=== PATIENT | female | born 1985 | race African-American/Black ===

== ENCOUNTER 2024-10-11 22:15 | Inpatient (IN) | payer MEDICAID ==
[~2024-10-11] VITALS: Ht 165.1 cm; Wt 86.9 kg
[2024-10-11 23:20] LABS: Hematocrit 24.3 % (36.0-46.0); Mean Corpuscular Hemoglobin 16.3 pg (28.0-32.0); Mean Corpuscular Volume 57.9 fL (80.0-100.0)
--- NOTE | 2024-10-11 23:22 | ED.PDOC ---
History of Present Illness HPI Comments 38 y/o F presents with 1x week history of fatigue and generalized bodyaches and weakness. Atraumatic and unprovoked onset. Patient comments on feeling tired than her usual self. No endorsed recent ailments, sick contacts, injuries, or significant medical history. Patient denies having any chest pain, shortness of breath, urinary symptoms, fever, chills, or further associated symptoms. 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 History Social History Smoker: Non-Smoker Alcohol: Denies ETOH Use Drugs: Denies Drug Use Lives In: Home All Other Systems: Reviewed and Negative (Comprehensive systems review obtained and negative except for what is stated in the HPI.) Physical Exam General Appearance: Mild Distress, Obese HEENT: Normal ENT Inspection, Pharynx Normal, TMs Normal Neck: Full Range of Motion, Non-Tender, Normal, Normal Inspection Respiratory: Chest Non-Tender, Lungs Clear, No Accessory Muscle Use, No Res piratory Distress, Normal Breath Sounds Cardiovascular: No Edema, No JVD, No Murmur, No Gallop, Normal Peripheral Pulses, Regular Rate/Rhythm Breast Exam: Deferred Gastrointestinal: No Organomegaly, Non Tender, No Pulsatile Mass, Normal Bowel Sounds, Soft Genitalia: Deferred Pelvic: Deferred Rectal: Deferred Extremities: No calf tenderness, Normal capillary refill, Normal inspection, Normal range of motion, Non-tender, No pedal edema Musculoskeletal : Apperance: Normal Neurologic: Alert, novelty maker II-XII nml as Tested, No Motor Deficits, Normal Affect, Normal Mood, No Sensory Deficits Cerebellar Function: Normal Reflexes: Normal Skin: Dry, Normal Color, Warm Lymphatic: No Adenopathy Was a procedure done? Was a procedure done?: No Differential Dx Considerations may include: viral syndrome, electrolyte imbalance, dehydration, anemia, hypothyroidism, among others X-Ray, Labs, Meds, VS Vital Signs Date Time Temp Pulse Resp B/P (MAP) Pulse Ox O2 Delivery O2 Flow Rate FiO2 10/11/24 22:25 99.0 85 16 115/77 98 99.0 Lab Test 10/11/24 22:59 Range/Units White Blood Count 3.8 L 4.4-10.8 10^3/uL Red Blood Count 4.20 4.0-5.20 10^6/uL Hemoglobin 6.9 *L 12.2-16.2 g/dL Hematocrit 24.3 L 36.0-46.0 % Mean Corpuscular Volume 57.9 L 80.0-100.0 fL Mean Corpuscular Hemoglobin 16.3 L 28.0-32.0 pg Mean Corpuscular Hemoglobin Concent 28.2 L 32.0-36.0 g/dL Red Cell Distribution Width 20.2 H 11.8-14.3 % Platelet Count 337 140-450 10^3/uL Mean Platelet Volume 8.6 6.9-10.8 fL Neutrophils (%) (Auto) 37.0-80.0 % Lymphocytes (%) (Auto) 10.0-50.0 % Monocytes (%) (Auto) 0.0-12.0 % Basophils (%) (Auto) 0.0-2.0 % Neutrophils # (Auto) 1.6-8.6 10 ^3/uL Lymphocytes # (Auto) 0.4-5.4 10 ^3/uL Monocytes # (Auto) 0-1.3 10 ^3/uL Differential Total Cells Counted 100.0 100 Neutrophils % (Manual) 29 L 37.0-80.0 Band Neutrophils % (Manual) 1 Lymphocytes % (Manual) 62 H 10.0-50.0 Monocytes % (Manual) 3 0-12 Eosinophils % (Manual) 5 0-7 Basophils % (Manual) 0 0.0-2.0 Metamyelocytes % (manual) 0 Myelocytes % (Manual) 0 Promyelocytes % (Manual) 0 Blast Cells % (Manual) 0 Reactive Lymphocytes 0 Platelet Estimate Adequate Large Platelets Few Hypochromasia (manual) Marked Anisocytosis (manual) Slight Microcytosis Marked Ovalocytes Few Sodium Level 142 136-145 mmol/L Potassium Level 3.6 3.5-5.1 mmol/L Chloride Level 110 H 98-107 mmol/L Carbon Dioxide Level 24 20-31 mmol/L Anion Gap 8 5-15 Blood Urea Nitrogen 9 9-23 mg/dL Creatinine 0.75 0.550-1.02 mg/dL Glomerular Filtration Rate Calc 104 >90 mL/min BUN/Creatinine Ratio 12.0 10.0-20.0 Serum Glucose 95 74-106 mg/dL Calcium Level 9.0 8.7-10.4 mg/dL Magnesium Level 1.8 1.6-2.6 mg/dL Total Bilirubin 0.6 0.2-1.0 mg/dL Aspartate Amino Transferase (AST) 15 13-40 U/L Alanine Aminotransferase (ALT) 11 7-40 U/L Alkaline Phosphatase 41 L 46-116 U/L Total Protein 6.7 5.7-8.2 g/dL Albumin 4.4 3.2-4.8 g/dL Thyroid Stimulating Hormone (TSH) 0.72 0.55-4.78 uIU/mL Free Thyroxine (T4) Calculated 1.09 0.89-1.76 ng/dL Time of 1ST Reevaluation: 23:10 Reevaluation 1ST: Unchanged Patient Education/Counseling: Diagnosis, Treatment, Need For Follow Up Family Education/Counseling: No Family Present SEPSIS Sepsis Screen Date sepsis recognized/suspect: Oct 11, 2024 Time Sepsis recognized/suspect: 2024 Recent Procedure: No On Antibiotic Therapy: No Respiratory Rate >20: No Heart Rate >90: No Temp<36 C (96.8 F) or >38.3 C: No SBP <90 or MAP <65 mmHG: No New Acute Mental Status Change: No Is the patient on CPAP, BIPAP,: No Physician Orders Urinalysis (10/11/24 22:48) Vital Signs Date Time Temp Pulse Resp B/P (MAP) Pulse Ox O2 Delivery O2 Flow Rate FiO2 10/11/24 22:25 99.0 85 16 115/77 98 99.0 Laboratory Tests Test 10/11/24 22:59 White Blood Count 3.8 10^3/uL (4.4-10.8) L Departure 1 Departure Time of Disposition: 00:58 Impression: Primary Impression: Iron deficiency anemia Additional Impression: Symptomatic anemia Disposition: ADMITTED INPATIENT Admit to: Med Surg Condition: Guarded Discharged With: Self Comments I reviewed the lab results. Patient is severely anemic with a H&H of 7 and 27. It is a microcytic anemia with MCV low at 58. White blood cell count is mildly low at 3.8. I suspect acute iron deficiency anemia. Patient will need admission for further workup and possible blood transfusion and for blood count gets any lower. Critical Care Note Critical Care Time?: No Stability Stability form required: No Heart Score Heart Score: Heart Score Response (Comments) Value History N/A 0 EKG N/A 0 Age N/A 0 Risk Factors N/A 0 Troponin N/A 0 Total 0 I personally scribed for JENIFER AGUILAR MD ([email or web address]) on 10/11/24 at 23:22. Electronically submitted by Nolberto Garrett ([email or web address]). JENIFER AGUILAR MD Oct 11, 2024 23:22
[2024-10-11 23:27] LABS: Alanine Aminotransferase 11 U/L (7-40); Albumin 4.4 g/dL (3.2-4.8); Anion Gap 8 (5-15); BUN/Creatinine Ratio 12.0 (10.0-20.0); Bilirubin, Total 0.6 mg/dL (0.2-1.0); Blood Urea Nitrogen 9 mg/dL (9-23); Calcium 9.0 mg/dL (8.7-10.4); Carbon Dioxide 24 mmol/L (20-31); Glucose 95 mg/dL (74-106); Hemoglobin 6.9 g/dL (12.2-16.2); Magnesium 1.8 mg/dL (1.6-2.6); Potassium 3.6 mmol/L (3.5-5.1); Sodium 142 mmol/L (136-145); Total Protein 6.7 g/dL (5.7-8.2)
[2024-10-11 23:29] LABS: Alkaline Phosphatase 41 U/L (46-116); Chloride 110 mmol/L (98-107)
[2024-10-12] VITALS (8 sets, daily range): BP systolic 95–124; BP diastolic 46–80; PULSE 59–76; RESP 13–20; TEMP 97.9–99; O2SAT 96–100
[2024-10-12 00:02] LABS: Total Cells Counted 100.0 (100)
[2024-10-12 00:04] LABS: Anisocytosis Slight; Ovalocytes FEW
[2024-10-12 04:23] LABS: Urine Protein, UAD Negative (Negative)
--- NOTE | 2024-10-12 04:29 | DVHHP2 ---
History of Present Illness Reason for Visit: Generalized weakness History of Present Illness 38-year-old female presents for evaluation of generalized weakness. Patient reports a one-week history of generalized weakness with fatigue and body aches. Patient reports history of anemia yet she is noncompliant with her iron supple ments. She reports not being transfused in the past. Denies chest pain or shortness for breath. No other acute complaints. Past Medical History Anemia Past Surgical History Denies Family History Noncontributory Smoke: No ALCOHOL: none Drugs: None Lives: with Family Review of Systems Review of Systems Review of systems are currently negative otherwise addressed in HPI. Allergies: Coded Allergies: NO KNOWN ALLERGIES (Unverified , 10/11/24) Medications Current Medications Medications Dose Ordered Sig/Mis Route Start Time Stop Time Status Last Admin Dose Admin Ondansetron HCl 4 mg Q4HP PRN IV 10/12/24 04:30 UNV Acetaminophen 650 mg Q6HP PRN PO 10/12/24 04:30 UNV Exam Vital Signs Vital Signs Date Time Temp Pulse Resp B/P (MAP) Pulse Ox O2 Delivery O2 Flow Rate FiO2 10/12/24 03:45 67 13 96 Room Air* 0 21 10/12/24 03:35 98.7 126/70 (88) 98.7 Exam Gen: 38-year-old female in mild distress Skin: Warm, dry, normal color and texture, no rash. HEENT: Normocephalic atraumatic, mucous membranes moist and pink. Neck: Cervical and supraclavicular nodes normal without enlargement, trachea is midline, thyroid gland is normal without masses. Pulmonary: Clear to auscultation and percussion bilaterally. Cardiac: Regular rate and rhythm. No murmur Abdomen: Soft, nontender, nondistended, bowel sounds present all 4 quadrants, no guarding, no rigidity, no organomegaly. Extremities: No cyanosis, clubbing, no edema Neuro: Cranial nerves II through XII grossly intact, normal affect and speech, no focal motor deficits. Labs/Xrays Labs Test 10/12/24 03:30 10/11/24 22:59 Range/Units Urine Color Light-yellow Yellow Urine Clarity Clear Clear Urine pH 6.0 5.0-9.0 Urine Specific [place] 1.028 1.001-1.035 Urine Protein Negative Negative Urine Ketones Negative Negative Urine Blood Negative Negative /uL Urine Nitrite Negative Negative Urine Bilirubin Negative Negative Urine Urobilinogen Normal Negative mg/dL Urine Leukocyte Esterase Negative Negative /uL Urine RBC None seen 0 - 4 /hpf Urine Microscopic WBC 4 0-5 /HPF Urine Squamous Epithelial Cells Few <5 /hpf Urine Bacteria None seen None Seen /hpf Urine Mucus Few None Seen Urine Glucose Normal Normal mg/dL White Blood Count 3.8 L 4.4-10.8 10^3/uL Red Blood Count 4.20 4.0-5.20 10^6/uL Hemoglobin 6.9 *L 12.2-16.2 g/dL Hematocrit 24.3 L 36.0-46.0 % Mean Corpuscular Volume 57.9 L 80.0-100.0 fL Mean Corpuscular Hemoglobin 16.3 L 28.0-32.0 pg Mean Corpuscular Hemoglobin Concent 28.2 L 32.0-36.0 g/dL Red Cell Distribution Width 20.2 H 11.8-14.3 % Platelet Count 337 140-450 10^3/uL Mean Platelet Volume 8.6 6.9-10.8 fL Neutrophils (%) (Auto) 37.0-80.0 % Lymphocytes (%) (Auto) 10.0-50.0 % Monocytes (%) (Auto) 0.0-12.0 % Basophils (%) (Auto) 0.0-2.0 % Neutrophils # (Auto) 1.6-8.6 10 ^3/uL Lymphocytes # (Auto) 0.4-5.4 10 ^3/uL Monocytes # (Auto) 0-1.3 10 ^3/uL Differential Total Cells Counted 100.0 100 Neutrophils % (Manual) 29 L 37.0-80.0 Band Neutrophils % (Manual) 1 Lymphocytes % (Manual) 62 H 10.0-50.0 Monocytes % (Manual) 3 0-12 Eosinophils % (Manual) 5 0-7 Basophils % (Manual) 0 0.0-2.0 Metamyelocytes % (manual) 0 Myelocytes % (Manual) 0 Promyelocytes % (Manual) 0 Blast Cells % (Manual) 0 Reactive Lymphocytes 0 Platelet Estimate Adequate Large Platelets Few Hypochromasia (manual) Marked Anisocytosis (manual) Slight Microcytosis Marked Ovalocytes Few Sodium Level 142 136-145 mmol/L Potassium Level 3.6 3.5-5.1 mmol/L Chloride Level 110 H 98-107 mmol/L Carbon Dioxide Level 24 20-31 mmol/L Anion Gap 8 5-15 Blood Urea Nitrogen 9 9-23 mg/dL Creatinine 0.75 0.550-1.02 mg/dL Glomerular Filtration Rate Calc 104 >90 mL/min BUN/Creatinine Ratio 12.0 10.0-20.0 Serum Glucose 95 74-106 mg/dL Calcium Level 9.0 8.7-10.4 mg/dL Magnesium Level 1.8 1.6-2.6 mg/dL Total Bilirubin 0.6 0.2-1.0 mg/dL Aspartate Amino Transferase (AST) 15 13-40 U/L Alanine Aminotransferase (ALT) 11 7-40 U/L Alkaline Phosphatase 41 L 46-116 U/L Total Protein 6.7 5.7-8.2 g/dL Albumin 4.4 3.2-4.8 g/dL Thyroid Stimulating Hormone (TSH) 0.72 0.55-4.78 uIU/mL Free Thyroxine (T4) Calculated 1.09 0.89-1.76 ng/dL SEPSIS Sepsis Screen Date sepsis recognized/suspect: Oct 12, 2024 Time Sepsis recognized/suspect: 344 Recent Procedure: No On Antibiotic Therapy: No Respiratory Rate >20: No Heart Rate >90: No Temp<36 C (96.8 F) or >38.3 C: No SBP <90 or MAP <65 mmHG: No New Acute Mental Status Change: No Is the patient on CPAP, BIPAP,: No Physician Orders Iron Panel (10/12/24 04:21) Type And Screen (10/12/24 04:21) Packedcell-Noactive Bleeding (10/12/24 04:21) Ferritin (10/12/24 04:21) Vitamin B12 (10/12/24 04:21) Folate (Folic Acid) (10/12/24 04:21) Regular Diet (10/12/24 Breakfast) Admit (10/12/24 04:21) Ondansetron Hcl (Zofran) (10/12/24 04:30) Complete Blood Count (10/13/24 04:00) Condition: Stable (10/12/24 04:21) Acetaminophen Tablet (Tylenol Tablet) (10/12/24 04:30) Bedrest With Bathroom Privileg (10/12/24 04:21) Vital Signs Date Time Temp Pulse Resp B/P (MAP) Pulse Ox O2 Delivery O2 Flow Rate FiO2 10/12/24 03:45 67 13 96 Room Air* 0 21 10/12/24 03:35 98.7 67 13 126/70 (88) 96 98.7 10/11/24 22:25 99.0 85 16 115/77 98 99.0 Laboratory Tests Test 10/11/24 22:59 White Blood Count 3.8 10^3/uL (4.4-10.8) L Assessment/Plan Assessment/Plan Assessment Symptomatic anemia Plan Admit the patient to [facility] to the hospitalist Transfuse 1 unit of packed red cells Iron panel pending Continue treatment per orders. Plan discussed with: Patient My Orders Orders - NEO ESCOTO Procedure Category Date Status Time Iron Panel LAB 10/12/24 Transmitted 04:21 Type And Screen BBK 10/12/24 Transmitted 04:21 Packedcell-Noactive BBK 10/12/24 Transmitted Bleeding 04:21 Ferritin LAB 10/12/24 Transmitted 04:21 Vitamin B12 LAB 10/12/24 Transmitted 04:21 Folate (Folic Acid) LAB 10/12/24 Transmitted 04:21 Regular Diet DIET 10/12/24 Transmitted Breakfast Admit ADMIT 10/12/24 Transmitted 04:21 Ondansetron Hcl PHA 10/12/24 Logged (Zofran) 04:30 Complete Blood Count LAB 10/13/24 Verified 04:00 Condition: Stable CHRISTINA 10/12/24 Transmitted 04:21 Acetaminophen Tablet PHA 10/12/24 Logged (Tylenol Tablet) 04:30 Bedrest With Bathroom CHRISTINA 10/12/24 Transmitted Privileg 04:21 Date of Service: Oct 12, 2024 Billing Provider: NEO ESCOTO Common Visit Codes: [id number] INP/OBS CARE (MOD) NEO ESCOTO Oct 12, 2024 04:29
[2024-10-12] MEDS ORDERED: ACETAMINOPHEN 325 MG TAB PO PRN (04:30)
[2024-10-12] MEDS ORDERED: ONDANSETRON HCL 4 MG/2 ML VIAL IV PRN (04:30)
[2024-10-12 04:57] LABS: Iron 19.0 ug/dL (50-170)
[2024-10-12 05:03] LABS: Ferritin 1.3 ng/mL (10-291)
[2024-10-12 05:11] LABS: Total Iron Binding Capacity 425.0 ug/dL (250-425)
--- NOTE | 2024-10-12 14:36 | DVHPNRES ---
Progress Note Date Seen: Oct 12, 2024 Resident Creating Document: CRISS BAKER Medical Necessity Reason Pt with a Central, PICC or Fol: No Subjective Review of Systems This is a 38-year-old female with past medical history of anemia came to ED with a 1-week history of generalized weakness, fatigue, and body aches. She reports a known history of anemia but admits to noncompliance with her iron supplementation. She has never required a blood transfusion in the past. Over the past few days, she has been sleeping excessively, including episodes of falling asleep while driving. She denies chest pain, shortness of breath, or other acute complaints. Menstrual history is unremarkable, with regular 5-day cycles and no heavy bleeding. She remains alert and oriented, and her symptoms appear consistent with symptomatic anemia. She reports not being transfused in the past. Denies chest pain or shortness for breath. No other acute complaints. Due to her significantly low hemoglobin level of 6.9 g/dL, she was started on a transfusion with packed red blood cells (PRBCs). Past medical history: anemia Past surgical history: none Family History: Mother: lupus Noncontributory Smoke: No ALCOHOL: none Drugs: None Lives: with Family Allergies: Coded Allergies: NO KNOWN ALLERGIES (Unverified , 10/11/24) Patient seen and examined at bedside. Patient is alert and oriented to time, place person and responding to all questions. Eyes: No Pain, No Vision change, No Conjunctivae inflammation, No Eyelid inflammation, No Other, No Redness ENT: No Ear pain, No Ear discharge, No Nose pain, No Nose discharge, No Nose congestion, No Mouth pain, No Mouth swelling, No Throat pain, No Throat swelling, No Other Cardiovascular: No Chest Pain, No Palpitations, No Orthopnea, No Paroxysmal No Dyspnea, No Edema, No Lt Headedness, No Other Respiratory: No Cough, No Dry, No Shortness of breath, No SOB with exertion, No Wheezing, No Hemoptysis, No Pleuritic Pain, No Sputum, No Other Gastrointestinal: Abdominal bloating. No Nausea, No Vomiting, No Abdominal Pain, No Diarrhea, No Constipation, No Melena, No Hematochezia, No Other Genitourinary: No Dysuria, No Frequency, No Incontinence, No Hematuria, No Retention, No Other Musculoskeletal: No other, No neck pain, No shoulder pain, No arm pain, No back pain, No hand pain, No leg pain, No foot pain Skin: No Rash, No Lesions, No Jaundice, No Bruising, No Other Objective vital signs Vital Sign Date Time Temp Pulse Resp B/P (MAP) Pulse Ox O2 Delivery O2 Flow Rate FiO2 10/12/24 13:00 98.4 72 18 123/65 (84) 100 98.4 10/12/24 08:54 Room Air* 0 21 medications Current Medications Medications Dose Ordered Sig/Mis Route Start Time Stop Time Status Last Admin Dose Admin Ondansetron HCl 4 mg Q4HP PRN IV 10/12/24 04:30 Acetaminophen 650 mg Q6HP PRN PO 10/12/24 04:30 Iron Sucrose 110 ml @ 110 mls/hr DAILY@1200 IV 10/12/24 12:00 10/16/24 12:59 UNV Examination Gen: 38-year-old female in mild distress Skin: Warm, dry, normal color and texture, no rash. HEENT: Normocephalic atraumatic, mucous membranes moist and pink. Neck: Cervical and supraclavicular nodes normal without enlargement, trachea is midline, thyroid gland is normal without masses. Pulmonary: Clear to auscultation and percussion bilaterally. Cardiac: Regular rate and rhythm. No murmur Abdomen: Soft, nontender, nondistended, bowel sounds present all 4 quadrants, no guarding, no rigidity, no organomegaly. Extremities: No cyanosis, clubbing, no edema Neuro: Cranial nerves II through XII grossly intact, normal affect and speech, no focal motor deficits. laboratory and microbiology Laboratory Tests 10/11/24 22:59 Test 10/11/24 22:59 Range/Units Serum Glucose 95 74-106 mg/dL Labs and/or images reviewed: Labs reviewed by me, Image(s) reviewed by me Problem List/Assessment/Plan Problem List/Assessment/Plan # Anemia likely due to Iron deficiency vs chronic disease -Hgb: 6.9 -MCV 57.9 L -Iron 19 L -Transfuse 1 unit of packed red cells -Iron panel -sharif stain slide -Reticulocyte ciybt -Iron sucrose -Folic acid -Vitamin B12 -Ferritin # rule out GI bleeding -Stool occult blood # Family history of lupus -MIRANDA Goals of care: Full code, discussed for >16 minutes on 10/12/24 Plan discussed with patient Plan discussed with Dr. Costa Plan discussed with: Patient (RN) My Orders My Orders Orders - CRISS BAKER Procedure Category Date Status Time Reticulocyte Count LAB 10/12/24 Logged 14:03 Complete Blood Count LAB 10/12/24 Logged 14:03 Stool Occult Blood LAB 10/12/24 Logged 14:03 Miranda; Direct LAB 10/12/24 In Process 14:03 CC Plasma Assessment Blood Product Administration S: [id number] CRISS BAKER Oct 12, 2024 14:36
[2024-10-12 14:58] LABS: Hematocrit 29.2 % (36.0-46.0); Hemoglobin 8.3 g/dL (12.2-16.2); Mean Corpuscular Hemoglobin 17.6 pg (28.0-32.0); Mean Corpuscular Volume 61.6 fL (80.0-100.0)
[2024-10-12 15:31] LABS: Anisocytosis Slight; Total Cells Counted 100.0 (100)
[2024-10-12] MEDS: IRON SUCROSE COMPLEX 110 ML IV SCH (16:33)
[2024-10-13 01:00] VITALS: BP 118/78; PULSE 60; RESP 18; TEMP 98; O2SAT 98
[2024-10-13 05:00] VITALS: BP 111/74; PULSE 73; RESP 18; TEMP 98.4; O2SAT 100
[2024-10-13 09:00] VITALS: BP 118/75; PULSE 77; RESP 17; TEMP 98.4; O2SAT 100
[2024-10-13 10:00] LABS: Potassium 3.6 mmol/L (3.5-5.1); Sodium 143 mmol/L (136-145)
[2024-10-13 10:01] LABS: Anion Gap 9 (5-15); Calcium 9.0 mg/dL (8.7-10.4); Carbon Dioxide 25 mmol/L (20-31)
[2024-10-13 10:05] LABS: Chloride 109 mmol/L (98-107)
[2024-10-13 10:06] LABS: BUN/Creatinine Ratio 8.5 (10.0-20.0); Glucose 104 mg/dL (74-106)
[2024-10-13 10:07] LABS: Hemoglobin 8.2 g/dL (12.2-16.2); Nucleated Red Blood Cells % 0.2 %
[2024-10-13 10:08] LABS: Blood Urea Nitrogen 7 mg/dL (9-23); Hematocrit 28.1 % (36.0-46.0); Mean Corpuscular Hemoglobin 17.6 pg (28.0-32.0); Mean Corpuscular Volume 60.3 fL (80.0-100.0)
[2024-10-13] MEDS ORDERED: FER325T PO (10:37)
[2024-10-13 10:45] LABS: Hepatitis B Surface Antigen Negative (Negative); Hepatitis C Antibody Negative (Negative)
[2024-10-13 13:00] VITALS: BP 103/51; PULSE 72; RESP 19; TEMP 98.3; O2SAT 100
--- NOTE | 2024-10-13 13:49 | DVHDSRES ---
Discharge Summary Date of Admission Resident Creating Document: CRISS BAKRE RESIDENT Oct 12, 2024 at 04:21 Date of Discharge: Oct 13, 2024 Admitting Diagnosis generalized weakness Labs/Diagnostic Data: Laboratory Results Test 10/13/24 09:29 10/12/24 14:25 10/12/24 04:36 10/12/24 03:30 White Blood Count 4.4 10^3/uL (4.4-10.8) Red Blood Count 4.65 10^6/uL (4.0-5.20) Hemoglobin 8.2 g/dL (12.2-16.2) Hematocrit 28.1 % (36.0-46.0) Mean Corpuscular Volume 60.3 fL (80.0-100.0) Mean Corpuscular Hemoglobin 17.6 pg (28.0-32.0) Mean Corpuscular Hemoglobin Concent 29.1 g/dL (32.0-36.0) Red Cell Distribution Width 23.3 % (11.8-14.3) Platelet Count 280 10^3/uL (140-450) Mean Platelet Volume 8.7 fL (6.9-10.8) Neutrophils (%) (Auto) 66.1 % (37.0-80.0) Lymphocytes (%) (Auto) 25.1 % (10.0-50.0) Monocytes (%) (Auto) 5.3 % (0.0-12.0) Eosinophils (%) (Auto) 1.4 % (0.0-7.0) Basophils (%) (Auto) 2.1 % (0.0-2.0) Neutrophils # (Auto) 2.9 10 ^3/uL (1.6-8.6) Lymphocytes # (Auto) 1.1 10 ^3/uL (0.4-5.4) Monocytes # (Auto) 0.2 10 ^3/uL (0-1.3) Eosinophils # (Auto) 0.1 10 ^3/uL (0-0.8) Basophils # (Auto) 0.1 10 ^3/uL (0-0.2) Nucleated Red Blood Cells 0.2 % Sodium Level 143 mmol/L (136-145) Potassium Level 3.6 mmol/L (3.5-5.1) Chloride Level 109 mmol/L (98-107) Carbon Dioxide Level 25 mmol/L (20-31) Anion Gap 9 (5-15) Blood Urea Nitrogen 7 mg/dL (9-23) Creatinine 0.82 mg/dL (0.550-1.02) Glomerular Filtration Rate Calc 93 mL/min (>90) BUN/Creatinine Ratio 8.5 (10.0-20.0) Serum Glucose 104 mg/dL (74-106) Calcium Level 9.0 mg/dL (8.7-10.4) Differential Total Cells Counted 100.0 (100) Neutrophils % (Manual) 59 (37.0-80.0) Band Neutrophils % (Manual) 0 Lymphocytes % (Manual) 37 (10.0-50.0) Monocytes % (Manual) 3 (0-12) Eosinophils % (Manual) 1 (0-7) Basophils % (Manual) 0 (0.0-2.0) Metamyelocytes % (manual) 0 Myelocytes % (Manual) 0 Promyelocytes % (Manual) 0 Blast Cells % (Manual) 0 Reactive Lymphocytes 0 Platelet Estimate [place] Large Platelets Few Hypochromasia (manual) Marked Anisocytosis (manual) Slight Microcytosis Marked Reticulocyte Count (auto) 1.58 % (0.5-1.5) Anti-Nuclear Antibody Screen Negative (Negative) Hepatitis B Surface Antigen Negative (Negative) Hepatitis C Antibody Negative (Negative) Urine Color Light-yellow (Yellow) Urine Clarity Clear (Clear) Urine pH 6.0 (5.0-9.0) Urine Specific [place] 1.028 (1.001-1.035) Urine Protein Negative (Negative) Urine Ketones Negative (Negative) Urine Blood Negative /uL (Negative) Urine Nitrite Negative (Negative) Urine Bilirubin Negative (Negative) Urine Urobilinogen Normal mg/dL (Negative) Urine Leukocyte Esterase Negative /uL (Negative) Urine RBC None seen /hpf (0 - 4) Urine Microscopic WBC 4 /HPF (0-5) Urine Squamous Epithelial Cells Few /hpf (<5) Urine Bacteria None seen /hpf (None Seen) Urine Mucus Few (None Seen) Urine Glucose Normal mg/dL (Normal) Test 10/11/24 22:59 Ovalocytes Few Magnesium Level 1.8 mg/dL (1.6-2.6) Iron Level 19 ug/dL (50-170) Total Iron Binding Capacity 425 ug/dL (250-425) Percent Iron Saturation 4.5 % (15-50) Ferritin 1.3 ng/mL (10-291) Total Bilirubin 0.6 mg/dL (0.2-1.0) Aspartate Amino Transferase (AST) 15 U/L (13-40) Alanine Aminotransferase (ALT) 11 U/L (7-40) Alkaline Phosphatase 41 U/L (46-116) Total Protein 6.7 g/dL (5.7-8.2) Albumin 4.4 g/dL (3.2-4.8) Vitamin B12 Level 487 pg/mL (211-911) Folic Acid 13.62 ng/mL (>5.38) Thyroid Stimulating Hormone (TSH) 0.72 uIU/mL (0.55-4.78) Free Thyroxine (T4) Calculated 1.09 ng/dL (0.89-1.76) Other Laboratory Tests 10/13/24 09:29 Brief Hx & Hospital Course: The patient is a 38-year-old female with a known history of anemia who presented to the ED with a 1-week history of generalized weakness, fatigue, and body aches. She reported excessive daytime sleepiness, including episodes of falling asleep while driving. She denied chest pain, shortness of breath, or other acute symptoms. Her menstrual history was unremarkable, and she admitted to noncompliance with iron supplementation. Initial labs revealed a hemoglobin level of 6.9 g/dL, MCV of 57.9 fL, and iron level of 19 g/dL, consistent with symptomatic iron deficiency anemia. She was transfused with one unit of packed red blood cells and started on iron sucrose supplementation. Post-transfusion hemoglobin improved to 8.3 g/dL. Additional labs including iron panel, reticulocyte count, folic acid, vitamin B12, ferritin, and were ordered to further evaluate the etiology of her anemia and rule out other causes, including chronic disease and autoimmune conditions given her family history of lupus. Stool occult blood testing was also ordered to rule out gastrointestinal bleeding. The patient remained hemodynamically stable and in no acute distress throughout her hospital stay. She was alert, oriented, and cooperative with care. No complications were noted during transfusion or iron administration. On the day of discharge, hemoglobin was 8.2 g/dL. She was monitored closely and received education on her plan of care. At discharge, the patient was stable, all questions were addressed, and she verbalized understanding of discharge instructions. Medication reconciliation was completed, and a copy was provided. The IV was removed with catheter intact, and a pressure dressing was applied. She was discharged via wheelchair, accompanied by staff and a family member, with no signs of distress. Examination Gen: 38-year-old female in mild distress Skin: Warm, dry, normal color and texture, no rash. HEENT: Normocephalic atraumatic, mucous membranes moist and pink. Neck: Cervical and supraclavicular nodes normal without enlargement, trachea is midline, thyroid gland is normal without masses. Pulmonary: Clear to auscultation and percussion bilaterally. Cardiac: Regular rate and rhythm. No murmur Abdomen: Soft, nontender, nondistended, bowel sounds present all 4 quadrants, no guarding, no rigidity, no organomegaly. Extremities: No cyanosis, clubbing, no edema Neuro: Cranial nerves II through XII grossly intact, normal affect and speech, no focal motor deficits. Condition at Discharge: Stable Final Diagnosis/Problems List # Anemia likely due to Iron deficiency vs chronic disease # rule out GI bleeding # Family history of lupus Discharge Disposition: Home SNF Discharge Will this Physician continue t: No (RN) Discharge Instruct/Medications Diet: Regular Activity: No Restrictions, As Tolerated Follow Up/Referral: pls follow up for colonoscopy in the outpatient pls follow up in mo clinic Medications: Ferrous Sulfate 325 Mg 1 Tab PO MWF 30 Days Scheduled Ferrous Sulfate (Ferrous Sulfate), 1 TAB PO MWF Discharge Statement: "Patient was advised to return to the ER or call 911 if any headaches, dizziness, shortness of breath, chest pain, abdominal pain, bleeding, fevers, or worsening of medical condition. Patient was counseled about treatment plan, medications, possible side effects, patientverbalized understanding. All questions were answered to the best of my ability. This discharge took greater then 30 minutes in planning, reviewing documentation, counseling the patient, and discussing with other team members." ASSESSMENT ASSESSMENT Assessment # Anemia likely due to Iron deficiency vs chronic disease -Hgb: 6.9 -MCV 57.9 L -Iron 19 L -Transfuse 1 unit of packed red cells -Iron panel -sharif stain slide -Reticulocyte ciybt -Iron sucrose -Folic acid -Vitamin B12 -Ferritin # rule out GI bleeding -Stool occult blood # Family history of lupus - CRISS BAKER RESIDENT Oct 13, 2024 13:49
== END 2024-10-13 12:18 | disposition home or self-care (01) | DRG 663 ==
LOC: ER 22:15 → OVERFLOW 10-12 04:21 → WEST WING 10-12 22:25
PROVIDERS: ADMIT Internal Medicine Geriatric Medicine; ATTEND Internal Medicine Geriatric Medicine
PROC: 30233N1 Transfusion of Nonautologous Red Blood Cells into Peripheral Vein, Percutaneous Approach (ICD-10-PCS; principal; 2024-10-12)
DX: D50.9 Iron deficiency anemia, unspecified (principal); K92.2 Gastrointestinal hemorrhage, unspecified; Z91.199 Patient's noncompliance with other medical treatment and regimen due to unspecified reason; Z83.2 Family history of diseases of the blood and blood-forming organs and certain disorders involving the immune mechanism
CPT/HCPCS: 36415; 80048; 80053; 81001; 82607; 82728; 82746; 83540; 83550; 83735; 84439; 84443; 85007; 85025; 85027; 85045; 86038; 86803; 86850; 86900; 86901; 86920; 87340; G0378; J1756